=== PATIENT | female | born 1995 | race African-American/Black ===

== ENCOUNTER 2019-08-26 14:48 | Emergency (ER) | payer MEDICAID ==
[~2019-08-26] VITALS: Ht 160 cm; Wt 59.0 kg
[2019-08-26 14:56] VITALS: BP 128/67
== END 2019-08-26 16:46 | disposition left against medical advice (07) ==
LOC: ER 14:48
DX: R22.43 Localized swelling, mass and lump, lower limb, bilateral (principal)
CPT/HCPCS: 99281